=== PATIENT | female | born 1995 | race Caucasian/White ===

== ENCOUNTER 2018-02-07 05:40 | Emergency (ER) | payer OTHER ==
[~2018-02-07] VITALS: Ht 157.5 cm; Wt 54.2 kg
[2018-02-07 05:43] VITALS: TEMP 36.7; Ht 157.5 cm; Wt 54.2 kg
--- NOTE | 2018-02-07 06:28 | EMERGENCY ROOM VISIT NOTE ---
ED Visit Note First contact with patient: 05:47 CHIEF COMPLAINT: Toe injury HISTORY OF PRESENT ILLNESS: This 22-year-old patient presents to the emergency department with friend complaining of pain in the right great toe after dropping a piece of equipment on it. There is pain with weight bearing and they are able to move the toe fairly normally. There was no bleeding. There is no redness, warmth, or discharge. The patient has taken nothing for their symptoms. The patient has no had a previous fracture to this toe. No other complaints. Patient is concerned as the toenail is full of blood and is painful. REVIEW OF SYSTEMS: A 6 system review of systems was completed with positives and pertinent negatives listed in the HPI. ALLERGIES: None MEDICATIONS: None PMH: None SOCIAL HISTORY: No drug use PHYSICAL EXAM: Vital Signs: Reviewed Nurse's notes, vital signs stable. GENERAL : Pleasant female, in no acute distress, but appears in pain, well-developed, well-nourished. SKIN: There is no erythema, redness, or warmth of the right great toe. There is blood underneath the toenail concerning for subungual hematoma. There is no active bleeding and no laceration. Capillary refill less than two seconds. MUSCULOSKELETAL: The right great toe is tender to palpation over the DP. There is no limitation of motion due to tenderness. There is no visual deformity. The ankle joint is not swollen or tender. The foot is not swollen or tender. NEURO: Patient was alert and oriented to person place and time. Normal sensation to light and sharp touch. EMERGENCY DEPARTMENT COURSE: I examined the patient. An X-Ray of the right great toe was reviewed by myself and my attending and shows no fracture. Patient verbalized consent and under antiseptic technique and 18-gauge needle was used to make a small hole in the nail to remove the blood and pressure. Fair amount of blood was removed and patient felt much better. Bandage was applied by nursing. Patient tolerated procedure well. Patient felt comfortable ambulating on the toe and declined crutches. Patient was informed the toenail may fall off. She is advised to do daily dressing changes until the bleeding resolves. She is advised to return to the ER immediately for fevers, redness, pain, worsening signs or symptoms or as needed. The patient was discharged home in stable condition. DIAGNOSIS: #1 right great toe subungual hematoma #2 right great toe injury DISCHARGE INSTRUCTIONS & TREATMENT: Change dressing daily until the bleeding resolves from the toenail. This toenail may fall off. Stay off the foot as much as possible and keep it elevated. Ibuprofen(Motrin, Advil) may be used for fever or pain. Use 400mg every six hours as needed. Take with food. Avoid using more than 1600mg in a 24 hour period. Do not use 1600mg per day for more than three consecutive days without physician direction. Prolonged inappropriate use can lead to stomach upset or ulcers. This medication can be taken if you need to drive, work, or perform activities which may be dangerous when taking narcotic pain medication. (AND/OR) Acetaminophen(Tylenol) may be used for fever or pain. Use 1000mg every six hours as needed. Avoid using more than 3000mg in a 24 hour period. This medication can be taken if you need to drive, work, or perform activities which may be dangerous when taking narcotic pain medication. Rest and elevate your injury. Continue current medications. Return to the ER immediately for any numbness, tingling, severe pain, extreme swelling in the extremity or as needed. Follow-up with health services in 3-5 days if symptoms persist. Vital Signs Date Time Temp Pulse Resp B/P (MAP) Pulse Ox O2 Delivery O2 Flow Rate FiO2 02/07/18 05:43 36.7 85 18 110/75 97 Room Air Departure Information Referrals No Doctor, Assigned (PCP) Patient Instructions My [facility]
[2018-02-07 06:41] VITALS: BP 106/68; PULSE 70; O2SAT 98
--- NOTE | 2018-02-07 07:22 | DIAGNOSTIC IMAGING REPORT ---
R TOE(S) MIN 2 VIEWS HISTORY: 22 years-old Female great right toe injury acute right toe pain status post trauma COMPARISON: None available TECHNIQUE: 3 views of the right great toe FINDINGS: There is mild soft tissue swelling of the first digit. No acute fracture, dislocation or opaque foreign body. No significant degenerative changes. IMPRESSION: Soft tissue swelling without acute fracture. The above report was generated using voice recognition software. It may contain grammatical, syntax or spelling errors. Electronically signed by: David Meek M.D. 02/07/2018 7:20 AM Dictated Date/Time: 02/07/2018 7:19 AM
== END 2018-02-07 06:48 | disposition home or self-care (01) ==
LOC: C.EDB 05:42 → C.EDA 06:48
DX: S90.211A Contusion of right great toe with damage to nail, initial encounter (principal); W20.8XXA Other cause of strike by thrown, projected or falling object, initial encounter